=== PATIENT | female | born 1970 | race Two or more races ===

== ENCOUNTER 2017-04-11 18:11 | Inpatient (IN) | payer MEDICARE ==
--- NOTE | ~2017-04-11 | CR72 ---
[facility] A Service of [facility] & [facility] RADIOLOGY TEXT RESULTS PATIENT: RK DONOHUE LOCATION: [address] : [birth year] UNIT #: [id number] AGE: [address]: Mati Bailey MD SEX: F ORDER DR: [id number] [facility] [address] [facility]. [place], [place] [address] [id number] I MR#: [id number] Acc #: [id number] NAME: RK DONOHUE : 1970 SEX: F STUDY DATE/TIME: 04/13/2017 05:20 UNIT: [facility] ROOM: [facility] STUDY DESCRIPTION: CR Chest Single View Portable Attending Physician: Mati Bailey M.D. Ordering Physician: Lashell Stanley M.D. Primary Care Physician: Obi Lawson M.D. MEDICAL IMAGING REPORT This report is preliminary unless electronic signature is present EXAM Portable chest, 04/13 at 05:20 INDICATIONS Respiratory failure, pneumonia. FINDINGS AP portable chest is compared with 04/11/2017. ET tube and right IJ line are in good position. Heart size stable. Infiltrates in the left [id number] lung are worsened and are concerning for pneumonia. Right lung is stable. There are old bilateral rib fractures. No pneumothorax. Dictated by... Raji Harris Jr., M.D. THIS IS AN ELECTRONICALLY VERIFIED REPORT Raji Harris Jr., M.D. at 04/14/2017 5:23 AM EDWARD/hugo TD: 04/13/2017 21:42 JOB #: [id number] MEDICAL IMAGING REPORT Page 1 of 1 COPY
--- NOTE | ~2017-04-11 | CO ---
Unit #: [id number] #: [id number] Patient: RK DONOHUE [id number] [address] [address] [id number] I MR#: [id number] NAME: RK DONOHUE ROOM: [facility] Age: 46 Sex: F Admission Date: 04/12/2017 : 1970 Attending Physician: Lucia Wagner M.D. Primary Care Physician: Obi Lawson M.D. Consultation Date: 04/15/2017 CONSULTATION REPORT REASON FOR CONSULTATION Lumbar compression fractures. CHIEF COMPLAINT Low back pain. HISTORY OF PRESENT ILLNESS Ms. Donohue is a 46-year-old female who is currently in the ICU due to pneumonia and altered mental status. The patient was admitted on 04/12/2017. She is doing better now. She reports low back pain. She had brain surgery back in December and after surgery she was bending over to pick something up and she fell, injuring her low back. This resulted in L1 and L3 compression fractures. It is unclear if this had been diagnosed. On CT of abdomen and pelvis she was noted to have subacute compression fractures involving these levels. The patient reports that pain is worse with motion and better with rest. She does have some difficulty ambulating due to the pain. She has been taking pain medication. No prior problems with the low back. She denies any numbness or tingling in the lower extremities. PAST MEDICAL HISTORY 1. DVT. 2. Seizure. 3. Back pain. 4. History of brain tumor, status post removal. 5. Lupus. 6. Hypertension. 7. Anxiety. PAST SURGICAL HISTORY 1. Left total knee. 2. Bilateral hip replacements. MEDICATIONS As par MAR, they have been reviewed. ALLERGIES Cipro, sulfa, penicillin. SOCIAL HISTORY The patient is from [facility]. She does smoke. No alcohol or drug use. FAMILY HISTORY Noncontributory. Unit #: [id number] #: [id number] Patient: RK DONOHUE REVIEW OF SYSTEMS No other pertinent pauses or negatives noted, other than what was mentioned in the HPI. PHYSICAL EXAMINATION GENERAL: The patient is alert an oriented for examination. No acute distress. VITAL SIGNS: Temperature 98.9 degree Fahrenheit, pulse 65, respiratory rate 20. Oxygen saturation is 97%. Blood pressure 146/86. HEENT: Head is atraumatic and normocephalic. Extraocular movements intact. Mucous membranes moist. Cervical spine midline with no appreciable JVD. Breathing is unlabored. CHEST: Chest rise is symmetric. ABDOMEN: Soft, nontender, nondistended. PULSE: Regular rate and rhythm. No clubbing, cyanosis or edema of the extremities. All extremities are warm and well perfused. Normal motor and sensory examination for all extremities. There is tenderness to palpation along the lumbar spine. No palpable defects. No appreciable skin lesions. DIAGNOSTIC STUDIES IMAGING STUDIES: CT of abdomen and pelvis reviewed with patient. There is subacute L1 and L3 compression fractures noted, approximately 80%. No appreciable cord impingement. LABORATORY STUDIES: White blood cell count 5.3, hemoglobin 9.4, BNP normal. INR 1.1. IMPRESSION 46-year-old female with subacute L1 and S3 compression fractures. PLAN Discuss the findings with the patient and family. I recommend continued conservative treatment. She is okay to be up with physical therapy when cleared medically. Will order a lumbar course at bedside for the patient to try. She will continue pain control. This should continue to heal over the next couple of months. Other options would include kyphoplasty if failure to improve but would not recommend doing this at the current moment. All of the patient's and family's questions were answered today. Dictated by... Ravinder Shaw M.D. BERYL/maria dolores TD: 04/15/2017 12:22 JOB #: [id number] Unit #: [id number] #: [id number] Patient: RK DONOHUE CONSULTATION REPORT Page 1 of 1 X X CONSULTATION REPORT
--- NOTE | ~2017-04-11 | FU ---
[facility] Nutrition Therapy DATE: 04/16/17 Patient: RK DONOHUE Physician: SHANDRA Address: [address] [facility] Room/Bed: [address], Zip: [place] [address] Admit Date: 04/12/17 Date of : [birth year] Height: 5 4 Weight: 132 60.2 NUTRITION MONITORING/FOLLOW-UP: Reason: Nutrition follow up Anthropometrics: Wt 04/16: 60.2 kg Labs: K+ 3.4 Creat 0.3 Alb 3.0 Meds: Coumadin, zofran, solu-medrol, MgS04, KCl, D5% I&O's: 2586/2600, last BM 04/15 Skin: Redness to coccyx Discoloration BLE Scab left heel Edema: none noted Diet: Mechanical soft with ground meats and thin liquids Assessment: Pt remains in ICU, and was extubated yesterday. Diet advanced as noted above per CLIENT SUCCESS SPECIALIST recommendations. Pt was never started on enteral nutrition, NGT was discontinued. RD spoke with the pt at bedside, who reports having a decreased appetite. Pt would not answer all RD's questions, and her provided most of the information. Of note, the pt's first language is Bosnian but she does speak and understand Bermudian. Pt's reports that she has lost weight in an unknown time frame, and that her UBW is 164#. Based on the pt's admission weight, this indicates ~ 26.5# weight loss. Pt's attribtues this to being sick. Pt was eating breakfast at time of RD visit. Pt had consumed ~ 50% of her eggs so far. RD stressed the importance of adequate nutritional intake, and pt is agreeable to Ensure BID. RD will order. Dx: Inadequate protien-energy intake RT clinical condition AEB intubated- RESOLVED 1) Potential for inadequate PO intake RT decreased appetite AEB ~26.5# weight loss reported by the pt's (unknown time frame). Intervention: 1. Diet per CLIENT SUCCESS SPECIALIST 2. Ensure BID Monitoring, Evaluation and Goals: 1. Oral intake; tolerate >50-75% of meals and supplements [facility] Nutrition Therapy DATE: 04/16/17 Patient: RK DONOHUE Physician: SHANDRA Address: [address] Room/Bed: [address], Zip: [place] [address] Admit Date: 04/12/17 Date of : [birth year] Height: 5 4 Weight: 132 60.2 2. Improve labs; K+ 3. Weight; prevent further unintentional weight loss Recommendations: 1. Continue diet per CLIENT SUCCESS SPECIALIST recommendations. No further restrictions recommended at this time. 2. Ensure Enlive (chocolate) BID with meals for supplemental nutrition. Status: Pt is at mild-moderate nutritional risk. RD will continue to follow hospital course. Respectfully, MARTINA PATEL, THALIA, LD [employer] cc: client file
--- NOTE | ~2017-04-11 | CT71 ---
[facility] A Service of [facility] RADIOLOGY TEXT RESULTS PATIENT: RK DONOHUE LOCATION: [facility] CICCU3-23 : [birth year] UNIT #: [id number] AGE: [address]: Mati Bailey MD SEX: F ORDER DR: [id number] [facility] [address] [facility]. [place], [place] [address] [id number] I MR#: [id number] Acc #: [id number] NAME: RK DONOHUE : 1970 SEX: F STUDY DATE/TIME: 04/11/2017 20:33 UNIT: [facility] ROOM: [id number] STUDY DESCRIPTION: CT Head Wo Contrast Attending Physician: Mati Bailey M.D. Ordering Physician: Bertha Jones M.D. Primary Care Physician: Obi Lawson M.D. MEDICAL IMAGING REPORT This report is preliminary unless electronic signature is present EXAM CT brain without contrast HISTORY Cardiopulmonary arrest today. Unresponsive. TECHNIQUE This CT exam was performed with one or more of the following radiation dose reduction techniques: automatic control, adjustment of mA and/or kV according to patient size, and iterative reconstruction. FINDINGS CT brain without contrast demonstrates a moderate sized area of chronic encephalomalacia in the anterior, superior left frontal lobe with overlying anterior frontal craniotomy. No intracranial hemorrhage, or midline shift. Mild compensatory dilatation of the anterior left lateral ventricle. No extraaxial fluid collection. Mucosal thickening in ethmoid air cells bilaterally and in the frontal sinuses. IMPRESSION 1. No acute intracranial findings. 2. Moderate sized focal area of encephalomalacia in the anterosuperior left frontal lobe deep to chronic frontal craniotomy. Dictated by... Gilles Forbes M.D. THIS IS AN ELECTRONICALLY VERIFIED REPORT Gilles Forbes M.D. at 04/12/2017 2:59 PM DFL/rnr TD: 04/12/2017 01:29 [facility] A Service of [facility] RADIOLOGY TEXT RESULTS PATIENT: RK DONOHUE LOCATION: [address] : [birth year] UNIT #: [id number] AGE: [address]: Mati Bailey MD SEX: F ORDER DR: JOB #: [id number] MEDICAL IMAGING REPORT Page 1 of 1 COPY
--- NOTE | ~2017-04-11 | CT2 ---
[facility] A Service of [facility] & [facility] RADIOLOGY TEXT RESULTS PATIENT: RK DONOHUE [facility] [birth year] UNIT #: [id number] AGE: [address]: Mati Bailey MD SEX: F ORDER DR: [id number] [facility] [address] [place], [place] [address] [id number] I MR#: [id number] Acc #: [id number] NAME: RK DONOHUE : 1970 SEX: F STUDY DATE/TIME: 04/11/2017 20:45 UNIT: [facility] ROOM: [id number] STUDY DESCRIPTION: CT Abd and Pelv W Cont Attending Physician: Mati Bailey M.D. Ordering Physician: Bertha Jones M.D. Primary Care Physician: Obi Lawson M.D. MEDICAL IMAGING REPORT This report is preliminary unless electronic signature is present EXAM CT abdomen pelvis with IV contrast HISTORY Shortness of air today. Cardiopulmonary arrest. Fever and lethargy today. TECHNIQUE This CT exam was performed with one or more of the following radiation dose reduction techniques: automatic control, adjustment of mA and/or kV according to patient size, and iterative reconstruction. FINDINGS CT abdomen and pelvis was performed with IV contrast. CT ABDOMEN: 1 cm cyst in the lateral segment left hepatic lobe. The remainder of the liver is unremarkable. Gallbladder is contracted. The spleen, pancreas, right kidney, and adrenal glands are normal. Subcentimeter cyst in the lower pole of the left kidney. Moderate amount of stool throughout the colon. No bowel dilatation. No ascites. IVC filter below the level of the renal veins. CT PELVIS: Moderate amount of stool in the sigmoid colon. Normal appendix. No pelvic mass or fluid collection is identified. Campuzano catheter in the bladder. The uterus is partly visualized and streak artifact from bilateral hip prostheses limits evaluation of the pelvis. Severe compression fractures of L1 and L3 vertebral bodies with close to 80% maximal loss of mid vertebral body height. These are new compared to CT 12/16/2016 and are probably subacute to chronic. IMPRESSION 1. No acute findings in the abdomen or pelvis. No abscess or free fluid or inflammatory stranding. 2. Severe compression fractures of the L1 and L3 vertebral bodies with STS. [facility] A Service of [facility] & [facility] RADIOLOGY TEXT RESULTS PATIENT: RK DONOHUE LOCATION: [facility]3-[facility] : [birth year] UNIT #: [id number] AGE: [address]: Mati Bailey MD SEX: F ORDER DR: close to 80% maximal loss of the mid vertebral body height. These are probably subacute to chronic and are new compared to CT 12/16/2016. 3. Normal appendix. 4. IVC filter in satisfactory position. 5. Moderate amount of stool throughout the colon. Dictated by... Gilles Forbes M.D. THIS IS AN ELECTRONICALLY VERIFIED REPORT Gilles Forbes M.D. at 04/12/2017 2:59 PM DFL/conrad TD: 04/12/2017 02:18 JOB #: [id number] MEDICAL IMAGING REPORT Page 1 of 1 COPY
--- NOTE | ~2017-04-11 | CR72 ---
[facility] A Service of [facility] & [facility] RADIOLOGY TEXT RESULTS PATIENT: RK DONOHUE LOCATION: [address] : [birth year] UNIT #: [id number] AGE: [address]: Mati Bailey MD SEX: F ORDER DR: [id number] [facility] [address] [place], [place] [address] [id number] I MR#: [id number] Acc #: [id number] NAME: RK DONOHUE : 1970 SEX: F STUDY DATE/TIME: 04/14/2017 0345 UNIT: [facility] ROOM: [facility] STUDY DESCRIPTION: CR Chest Single View Portable Attending Physician: Mati Bailey M.D. Ordering Physician: Lashell Stanley M.D. Primary Care Physician: Obi Lawson M.D. MEDICAL IMAGING REPORT This report is preliminary unless electronic signature is present EXAM Portable chest, 04/14 at 0345 hours. INDICATION Respiratory failure, pneumonia. Fever. FINDINGS AP portable chest compared with 04/13/2017. ET tube and right IJ line are in good position. Heart size stable. Patchy bilateral infiltrates are again seen. These are stable on the left and minimally worse at the right base. There are bilateral old rib fractures. No pneumothorax. Dictated by... Raji Harris Jr., M.D. THIS IS AN ELECTRONICALLY VERIFIED REPORT Raji Harris Jr., M.D. at 04/14/2017 5:19 PM EDWARD/fuad TD: 04/14/2017 10:53 JOB #: [id number] MEDICAL IMAGING REPORT Page 1 of 1 COPY
--- NOTE | ~2017-04-11 | CR72 ---
[facility] A Service of [facility] & [facility] RADIOLOGY TEXT RESULTS PATIENT: RK DONOHUE LOCATION: [facility] C[facility]3 : [birth year] UNIT #: [id number] AGE: [address]: Mati Bailey MD SEX: F ORDER DR: [id number] [facility] [address] [place], [place] [address] [id number] E MR#: [id number] Acc #: [id number] NAME: RK DONOHUE : 1970 SEX: F STUDY DATE/TIME: 04/11/2017 17:57 UNIT: [facility] ROOM: STUDY DESCRIPTION: CR Chest Single View Portable Attending Physician: Toney Ponce M.D. Ordering Physician: Bertha Jones M.D. Primary Care Physician: Obi Lawson M.D. MEDICAL IMAGING REPORT This report is preliminary unless electronic signature is present EXAM Portable chest x-ray. DATE OF EXAM 04/11/2017 HISTORY Status post intubation. REPORT AP radiograph of the chest is presented. COMPARISON Most recent study for comparison 12/16/2016. FINDINGS Endotracheal tube terminates in mid-thoracic trachea, approximately 3.2 cm above vanesa. Enteric tube extends below diaphragm and off field of radiograph. Mild cardiac enlargement stable. Tortuous thoracic aorta stable. Bilateral healed rib fractures. No acute-appearing bony abnormality. The lungs are moderately well inflated. Mildly prominent central peribronchial markings slightly more pronounced than on the prior study. This could be a reflection of mild interstitial edema superimposed on chronic bronchitis changes or component of acute on chronic bronchitis. Reactive airway disease could be considered. Correlation with clinical presentation and exam. No dense airspace disease, pleural effusion or pneumothorax and no suspicious nodule. Dictated by... Leobardo Baez M.D. [facility] A Service of [facility] & [facility] RADIOLOGY TEXT RESULTS PATIENT: RK DONOHUE LOCATION: [facility] CICCU3 : [birth year] UNIT #: [id number] AGE: [address]: Mati Bailey MD SEX: F ORDER DR: THIS IS AN ELECTRONICALLY VERIFIED REPORT Leobardo Baez M.D. at 04/14/2017 8:19 PM Johnathon TD: 04/11/2017 23:42 JOB #: [id number] MEDICAL IMAGING REPORT Page 1 of 1 COPY
--- NOTE | ~2017-04-11 | HP ---
Unit #: [id number] #: [id number] Patient: RK DONOHUE [id number] [address] [address] [id number] I MR#: [id number] NAME: RK DONOHUE ROOM: [facility] Age: 46 Sex: F Admission Date: 04/12/2017 : 1970 Attending Physician: Lucia Wagner M.D. Primary Care Physician: Obi Lawson M.D. HISTORY AND PHYSICAL HISTORY OF PRESENT ILLNESS Ms. Donohue is a 46-year-old female, an immigrant from [facility], who was admitted on April 12 secondary to acute respiratory failure requiring intubation along with the pneumonia. Apparently patient was not put on my list therefore I have not seen the patient till today when she appeared on my list. It looks like she came in with the hypoxemic respiratory failure requiring intubation. She was intubated, was followed throughout the admission in ICU by intensive care service. She was treated with the antibiotics, mechanical ventilation and bronchodilators and steroids. She was successfully extubated. She is one with the history of DVT status post IVC filter, history of seizure disorder, chronic back pain, history of brain tumor status post removal, history of lupus, hypertension, anxiety, depression and chronic pain, taken care of by primary care physician Dr. Lawson. Currently she complains of having trouble sleeping, otherwise she denies any chest pain, headache, dizziness, fever, chills, nausea, vomiting, diarrhea or abdominal pain. REVIEW OF SYSTEMS A 12-point review of systems on this patient is basically negative except as above. PAST MEDICAL HISTORY Past medical history is significant for: 1. History of DVT. 2. Chronic pain. 3. Seizures. 4. Brain tumor, status post removal. 5. Lupus. 6. Hypertension. 7. Anxiety and depression. PAST SURGICAL HISTORY Past surgical history is significant for: 1. Left total knee. 2. Bilateral hip replacement. CURRENT MEDICATIONS Current medications on this patient include Xanax, Megace, Keppra, Coumadin, Ultram, methadone, Neurontin, amitriptyline, morphine, Zofran, Solu-Medrol, Combivent inhalers, Tylenol p.r.n., mag sulfate per replacement protocol, KCl per replacement protocol, Maxipime IV. Unit #: [id number] #: [id number] Patient: RK DONOHUE ALLERGIES Sulfa, penicillin and Cipro. SOCIAL HISTORY She is an active smoker, no alcohol or illicit drug use. FAMILY HISTORY Unremarkable. PHYSICAL EXAMINATION GENERAL: Patient is a 46-year-old ill-appearing female not in acute distress. VITAL SIGNS: BP 158/82. Heart rate 67. Respirations 20. Temperature 99.5. HEENT: Head is atraumatic. Pupils equal, round and reactive to light and accommodation. Extraocular muscles intact. Oropharynx clear. NECK: Neck is supple. No mass. No JVD. No bruits. CHEST: Diminished bilaterally. CARDIOVASCULAR EXAM: S1, S2. No murmurs. ABDOMEN: Soft, nontender, nondistended. EXTREMITIES: Lower extremities without any cyanosis, clubbing or edema. NEUROLOGIC: Patient without any focal deficits. DIAGNOSTIC STUDIES LABORATORY: Chemistry unremarkable with albumin of 3.0. Coagulation panel: PT and INR 11.4 and 1.1. On admission set of cardiac enzymes was negative. Today's hematology is significant for hemoglobin and hematocrit 9.4 and 28.6. ASSESSMENT AND PLAN 1. Acute hypoxemic respiratory failure. 2. Pneumonia. 3. History of seizure disorder. 4. History of deep venous thrombosis, on anticoagulation, status post inferior vena cava filter. 5. Compression lumbar spine fractures with the chronic low back pain, status post evaluation per Orthopedic Surgery: Will ask Spinal Surgery for eval. 6. History of depression and anxiety: Will get Psychiatry onboard. 7. History of chronic pain: Continue current management. Watch for oversedation. 8. Anemia of chronic disease: Monitor hemoglobin and hematocrit. 9. Continue current GI and DVT prophylaxis. Dictated by Andrey Marcos/federico TD: 04/15/2017 20:14 JOB #: [id number] Unit #: [id number] #: [id number] Patient: RK DONOHUE HISTORY AND PHYSICAL Page 1 of 1 X Justino Pelletier MD HISTORY AND PHYSICAL
--- NOTE | ~2017-04-11 | OR ---
Unit #: [id number] #: [id number] Patient: RK DONOHUE [id number] [address] [address] [id number] I MR#: [id number] NAME: RK DONOHUE ROOM: [facility] Date of Procedure: 04/13/2017 Admission Date: 04/12/2017 Surgeon: Lashell Stanley M.D. : 1970 Attending Physician: Mati Bailey M.D. Primary Care Physician: Obi Lawson M.D. PROCEDURE OPERATIVE NOTE PROCEDURE PERFORMED Diagnostic bronchoscopy. INDICATION Pneumonia. PREPROCEDURE DIAGNOSIS Pneumonia. POSTPROCEDURE DIAGNOSIS Pneumonia. DETAILS OF PROCEDURE After taking consent from the patient's family and explaining the risks and benefits, patient was placed in proper position. A bronchoscope was introduced through the endotracheal tube which was sitting well above the vanesa. We examined the right upper, right middle, and right lower lobe, left upper lobe, lingula, and left lower lobe. No endobronchial lesion was found. There were thick, mucoid secretions in both lungs which were therapeutically suctioned. Then, we did a bronchoalveolar lavage in the right lower lobe and right middle lobe area with 100 mL of saline in and 30 mL back. Patient tolerated the procedure very well. No complications happened. Dictated by... Andrey Howard TD: 04/13/2017 17:41 JOB #: [id number] PROCEDURE OPERATIVE NOTE Page 1 of 1 X Lashell Stanley MD X PROCEDURE OPERATIVE NOTE
--- NOTE | ~2017-04-11 | CO ---
Unit #: [id number] #: [id number] Patient: RK DONOHUE [id number] [facility] [address] [place], [place] [address] [id number] I MR#: [id number] NAME: RK DONOHUE ROOM: 330 Age: 46 Sex: F Admission Date: 04/12/2017 : 1970 Attending Physician: Lucia Wagner M.D. Primary Care Physician: Obi Lawson M.D. Consultation Date: 04/17/2017 CONSULTATION REPORT REASON FOR CONSULTATION Followup. DISCUSSION Ms. Donohue is a 46-year-old Bosnian female seen in room 330, bed 1, on 04/17/17 at [facility]. Patient was recently transferred from CCU. Patient's was at the bedside. Patient dressed casually in hospital attire, sitting comfortably in chair, made good eye contact, able to answer questions more spontaneously, coherent, cooperative. Patient reported medication is helping her. Denied any suicidal or homicidal ideation. Reported decrease in anxiety and depression. Denied any psychotic symptoms or any suicidal or homicidal ideation. Patient's vital signs - 97.6; 94; 18; 140/93; oxygen saturation 97%. REVIEW OF SYSTEMS Complete review of systems unremarkable. MENTAL STATUS EXAMINATION Vital signs - Please see above. General appearance - Patient dressed casually in hospital attire. Attention span, concentration - Fair. Speech - Regular rate, coherent. Oriented to time, place and person. Mood and affect - Sad, dysphoric, flat but able to smile. Thought process - Coherent. Thought content - Patient denied any thoughts of harming self or others or any psychotic symptoms. Recent and remote memory - Fair. Language - Intact. Fund of knowledge - Fair. Insight and judgment - Fair to slightly impaired. DIAGNOSIS PSYCHIATRIC - Major depressive disorder, recurrent, moderate, F33.2; anxiety disorder, NOS, F40.01. ASSESSMENT AND PLAN 1. Supportive psychotherapy and psychoeducation provided to the patient. 2. Educated about benefits and side effects of medication and course and prognosis of illness. 3. Advised to continue with current medications. If needed, consider further adjustment of medications. Please feel free to call with any questions, telephone number . Unit #: [id number] #: [id number] Patient: RK DONOHUE Dictated by... Andrey Deleon/belkis TD: 04/18/2017 07:45 JOB #: [id number] CONSULTATION REPORT Page 1 of 1 X Rony Lai MD X CONSULTATION REPORT
--- NOTE | ~2017-04-11 | CR6 ---
[facility] A Service of [facility] & [facility] RADIOLOGY TEXT RESULTS PATIENT: RK DONOHUE LOCATION: CICCU3 CICCU3-23 : [birth year] UNIT #: [id number] AGE: [address]: Mati Bailey MD SEX: F ORDER DR: [id number] [facility] [address] [place], [place] [address] [id number] E MR#: [id number] Acc #: [id number] NAME: RK DONOHUE : 1970 SEX: F STUDY DATE/TIME: 04/11/2017 19:02 UNIT: FELIZ ROOM: STUDY DESCRIPTION: CR Abdomen Portable Sng View Attending Physician: Toney Ponce M.D. Ordering Physician: Bertha Jones M.D. Primary Care Physician: Obi Lawson M.D. MEDICAL IMAGING REPORT This report is preliminary unless electronic signature is present EXAM Supine radiograph of the abdomen HISTORY Central line and mass abdomen on left side. FINDINGS AP radiograph of the abdomen is presented. Right hemiabdomen not included on field of view and cannot be assessed. Airspace disease left lung base with small left pleural effusion. Please see prior chest radiograph for full evaluation of the lungs. Enteric tube terminates near the junction of proximal middle thirds of stomach. There is an inferior vena caval filter in place centered at the L2 - L3 level. The visualized bowel gas pattern is within normal limits with moderate stool burden in colon. There appears to be a Campuzano catheter in place. Prior right hip arthroplasty. Visualized orthopedic hardware intact. Moderate levoscoliosis lumbar spine centered at L3 level. Associated degenerative changes. No acute-appearing bony abnormality. Where visible the solid organ contours are unremarkable. No indication of free air. Dictated by... Leobardo Baez M.D. THIS IS AN ELECTRONICALLY VERIFIED REPORT Leobardo Baez M.D. at 04/14/2017 8:14 PM ALEX/conrad TD: 04/12/2017 00:11 JOB #: [id number] [facility] A Service of [facility] & [facility] RADIOLOGY TEXT RESULTS PATIENT: RK DONOHUE [facility] [birth year] UNIT #: [id number] AGE: [address]: Mati Bailey MD SEX: F ORDER DR: MEDICAL IMAGING REPORT Page 1 of 1 COPY
--- NOTE | ~2017-04-11 | CT16 ---
[facility] A Service of [facility] & [facility] RADIOLOGY TEXT RESULTS PATIENT: RK DONOHUE LOCATION: CEDOF [address]1046-93 : [birth year] UNIT #: [id number] AGE: [address]: Mati Bailey MD SEX: F ORDER DR: [id number] [facility] [address] [place], [place] [address] [id number] I MR#: [id number] Acc #: [id number] NAME: RK DONOHUE : 1970 SEX: F STUDY DATE/TIME: 04/11/2017 20:45 UNIT: CED ROOM: 85978 STUDY DESCRIPTION: CT Angio Chest for PE Attending Physician: Mati Bailey M.D. Ordering Physician: Bertha Jones M.D. Primary Care Physician: Obi Lawson M.D. MEDICAL IMAGING REPORT This report is preliminary unless electronic signature is present EXAM Chest CTA 04/11/2045 INDICATIONS Shortness of air status post full arrest today. Fever and lethargy. Patient currently unresponsive and intubated. TECHNIQUE Axial images were obtained through the chest following IV contrast administration. Study was repeated secondary to poor bolus timing. 3-D reformats were obtained. Comparison is made with 12/16/2016. This CT exam was performed with one or more of the following radiation dose reduction techniques: automatic control, adjustment of mA and/or kV according to patient size, and iterative reconstruction. FINDINGS Endotracheal tube is in good position. Right IJ central venous catheter tip is in the SVC. NG tube tip is in the stomach. There is no pulmonary embolism or aortic dissection. No pleural or pericardial effusion. There is no adenopathy. Lung windows demonstrate scattered areas of alveolar infiltrate in both lungs with a diffuse tree-in-bud infiltrate bilaterally. Findings are in keeping with diffuse pneumonia. Secretions are noted in both mainstem bronchi. Aspiration is not excluded. There is no pneumothorax. The upper abdomen shows an IVC filter. Bone windows demonstrate multiple old bilateral rib fractures. Additionally, since the prior chest CT, there has been interval development of multiple jfu-ep-wzrna thoracic compression fractures. Fractures are now evident at L2, L1, T12, T11, probably at T10. Compression fracture at T9 has worsened since the prior CT. The fracture at L1 is most severe and there are approximately 8 mm of retropulsion into the spinal canal causing spinal stenosis. Followup with thoracic spine MRI with and without contrast is recommended when clinically feasible. [facility]. [facility] A Service of [facility] & [facility] RADIOLOGY TEXT RESULTS PATIENT: RK DONOHUE LOCATION: [facility] [address]-37 : [birth year] UNIT #: [id number] AGE: [address]: Mati Bailey MD SEX: F ORDER DR: IMPRESSION 1. No pulmonary embolism or aortic dissection. 2. Diffuse tree-in-bud infiltrates throughout both lungs compatible with diffuse bilateral pneumonia. More confluent areas of alveolar consolidation are noted as well bilaterally in a patchy distribution. There are some secretions in both mainstem bronchi and I cannot exclude the possibility of aspiration. 3. Well-positioned tubes and lines. 4. Multiple new thoracic and upper lumbar compression fractures since the chest CT of 12/16/2016. Followup with thoracic spine MRI with and without contrast when clinically feasible is recommended. The most severe fracture appears to be at L1 where there is about 8 mm of retropulsion into the spinal canal. Dictated by... Raji Harris Jr., M.D. THIS IS AN ELECTRONICALLY VERIFIED REPORT Raji Harris Jr., M.D. at 04/12/2017 5:47 AM EDWARD/conrad TD: 04/12/2017 05:35 JOB #: [id number] MEDICAL IMAGING REPORT Page 1 of 1 COPY
--- NOTE | ~2017-04-11 | CO ---
Unit #: [id number] #: [id number] Patient: RK DONOHUE [id number] [facility]. [place], [place] [address] [id number] I MR#: [id number] NAME: RK DONOHUE ROOM: [facility] Age: 46 Sex: F Admission Date: 04/12/2017 : 1970 Attending Physician: Lucia Wagner M.D. Primary Care Physician: Obi Lawson M.D. Consultation Date: 04/16/2017 CONSULTATION REPORT REASON FOR CONSULTATION Depression/anxiety. HISTORY OF PRESENT ILLNESS Ms. Donohue is a 46-year-old, Czech female seen on bed 23, CCU3 at [facility] on 04/16/17. Patient was sitting in a propped up position. Patient's was helping in feeding her. Patient was able to answer questions appropriately and answered questions slowly. Reported feeling sad and depressed along with anger, (1) aggression. Patient's also reported there is change in her behavior after recent brain surgery when the tumor was removed. Patient was admitted due to acute respiratory failure requiring intubation and diagnosed with pneumonia. Patient is having periods of agitation. Patient's reported that she has a history of severe chronic back pain; history of brain tumor, status post removal; and history of depression/anxiety currently on no medication, except for Xanax. Patient denied any thoughts of harming self or others or any psychotic symptoms, but somewhat guarded. Patient's vital signs: 98.5, 86, 20, 132/72, and oxygen saturation 95%. PAST PSYCHIATRIC HISTORY Remarkable for history of depression/anxiety. MEDICAL HISTORY History of DVT; chronic pain; seizure disorder; brain tumor, status post removal; lupus; hypertension. MEDICATION ALLERGIES To sulfa, penicillin, and Cipro. MEDICATIONS Patient is on: 1. Xanax. 2. Keppra. 3. Coumadin. 4. Ultram. 5. Methadone. 6. Neurontin. 7. Amitriptyline. 8. Morphine. 9. Zofran. 10. Solu-Medrol. 11. Combivent. FAMILY HISTORY AND SOCIAL HISTORY Unit #: [id number] #: [id number] Patient: RK DONOHUE Patient has a good support system. No history of abuse. No history of any substance abuse. REVIEW OF SYSTEMS Completely review of systems is unremarkable, except as mentioned above, anxiety, and agitation. MENTAL STATUS EXAMINATION VITAL SIGNS: Please see above. GENERAL APPEARANCE: Patient dressed casually in hospital attire. ATTENTION SPAN AND CONCENTRATION: Fair to poor. SPEECH: Slow. Long pauses. ORIENTATION: Oriented in self and place. MOOD AND AFFECT: Labile, flat. THOUGHT PROCESS: Circumstantial. THOUGHT CONTENT: Guarded, but denied any thoughts of harming self or others. Somewhat guarded and paranoid. RECENT AND REMOTE MEMORY: Fair to slightly impaired. LANGUAGE: Fair. FUND OF KNOWLEDGE: Fair to slightly impaired. INSIGHT AND JUDGEMENT: Fair to slightly impaired. DIAGNOSES PSYCHIATRIC 1. Major depressive disorder, recurrent, severe, F33.2. 2. Anxiety disorder, NOS, F40.01. SECONDARY DIAGNOSIS: Deferred. MEDICAL DIAGNOSIS: Please refer to H and P. STRESSORS: Psychosocial stressors. ASSESSMENT/PLAN 1. Supportive psychotherapy and psychoeducation provided to patient. 2. Educated about benefits and side effects of medication and course and prognosis of illness. 3. Advised to continue with the current medication Xanax, but changing the dosage to 0.5 mg 3 times a day and recommending to add Zoloft for mood symptoms 25 mg at bedtime. If needed, consider medication such as Zyprexa for mood stabilization. 4. We will continue to follow. Please feel free to call if any questions. Telephone number . Dictated by... Andrey Deleon/oli TD: 04/17/2017 06:31 JOB #: [id number] Unit #: [id number] #: [id number] Patient: RK DONOHUE CONSULTATION REPORT Page 1 of 1 X Rony Lai MD CONSULTATION REPORT
--- NOTE | ~2017-04-11 | EKG ---
PATIENT: RK DONOHUE UNIT #: [id number] Ventricular Rate: 141 BPM Atrial Rate: 141 BPM P-R Interval: 154 ms QRS Duration: 80 ms Q-T Interval: 252 ms QTC Calculation(Bezet): 385 ms P [place]: 65 degrees Calculated R [place]: -3 degrees Calculated T [place]: 63 degrees Diagnosis Line: Sinus tachycardia Diagnosis Line: Nonspecific ST and T wave abnormality Diagnosis Line: Otherwise normal ECG Diagnosis Line: When compared with ECG of 16-DEC-2016 06:38, Diagnosis Line: Vent. rate has increased BY 66 BPM Diagnosis Line: ST now depressed in Anterior leads Diagnosis Line: Confirmed by HILARY PALACIOS MD ([id number]) on 04/11/2017 Diagnosis Line: 8:12:45 PM INTERPRETING MD: PHILIP BAUTISTA
--- NOTE | ~2017-04-11 | CR72 ---
[facility] A Service of [facility] RADIOLOGY TEXT RESULTS PATIENT: RK DONOHUE LOCATION: CICCU3 CICCU3-23 : [birth year] UNIT #: [id number] AGE: [address]: Mati Bailey MD SEX: F ORDER DR: [id number] [facility] [address] [facility] [place], [place] [address] [id number] E MR#: [id number] Acc #: [id number] NAME: RK DONOHUE : 1970 SEX: F STUDY DATE/TIME: 04/11/2017 18:59 UNIT: FELIZ ROOM: STUDY DESCRIPTION: CR Chest Single View Portable Attending Physician: Toney Ponce M.D. Ordering Physician: Bertha Jones M.D. Primary Care Physician: Obi aLwson M.D. MEDICAL IMAGING REPORT This report is preliminary unless electronic signature is present EXAM Portable chest x-ray HISTORY Status post TLC placement. FINDINGS AP radiograph of the chest is presented. Comparison 04/11/2017 17:57 hours. Right internal jugular central venous catheter terminates in superior vena cava. Endotracheal tube unchanged. Enteric tube extends below diaphragm at least to mid gastric level. The side-port is seen at junction of proximal and middle thirds of stomach. The cardiomediastinal contours are unchanged. Lung volumes moderate. Interstitial prominence in the bilateral lungs has increased in the interval from the prior study concerning for increased interstitial edema. New patchy air space disease at the left lung base could be in part atelectatic in nature or in part air space edema. New small left pleural effusion. No pneumothorax. No acute bony abnormality. Bilateral healed rib fractures. Dictated by... Leobardo Baez M.D. THIS IS AN ELECTRONICALLY VERIFIED REPORT Leobardo Baez M.D. at 04/14/2017 8:19 PM ALEX/ayanr TD: 04/12/2017 00:08 JOB #: [id number] [facility] A Service of [facility] RADIOLOGY TEXT RESULTS PATIENT: RK DONOHUE [address] [birth year] UNIT #: [id number] AGE: [address]: Mati Bailey MD SEX: F ORDER DR: MEDICAL IMAGING REPORT Page 1 of 1 COPY
--- NOTE | ~2017-04-11 | CO ---
Unit #: [id number] #: [id number] Patient: RK DONOHUE [id number] [address] [address] [id number] I MR#: [id number] NAME: RK DONOHUE ROOM: [facility] Age: 46 Sex: F Admission Date: 04/12/2017 : 1970 Attending Physician: Mati Bailey M.D. Primary Care Physician: Obi Lawson M.D. CONSULTATION REPORT REASON FOR CONSULTATION Critical care management and respiratory failure, pneumonia. CHIEF COMPLAINT/HISTORY OF PRESENT ILLNESS This patient basically presented, brought in by the family, with a fever and altered mental status one day ago. Temperature was 103 with cough and difficulty breathing. The patient was intubated in the emergency room. PAST MEDICAL HISTORY 1. DVT. 2. Seizure. 3. Chronic back pain. 4. Benign brain tumor, recently (1) surgery. I am seeing the patient at bedside. Currently intubated, sedated. REVIEW OF SYSTEMS Unobtainable. PHYSICAL EXAMINATION VITAL SIGNS: Her temperature is 101, pulse is 111, respirations 22, blood pressure is 135/78. NEUROLOGICAL: She is sedated, intubated. PAST MEDICAL HISTORY As described above. SOCIAL HISTORY Positive for smoking. No alcohol, no drug abuse. FAMILY HISTORY None as per record. MEDICATIONS As per MAR, has been reviewed. ALLERGIES Has been reviewed. DIAGNOSTIC STUDIES LABORATORY: pH of 7.36, pCO2 46, pO2 is 121. INR 5.5, white count 9, hemoglobin 13, hematocrit 43, platelet count is 195. Unit #: [id number] #: [id number] Patient: RK DONOHUE Drug screen positive for methadone and benzodiazepine and TCA. IMAGING: Chest x-ray has been reviewed. ASSESSMENT AND PLAN 1. Acute respiratory failure. 2. Altered mental status. 3. Chronic obstructive pulmonary disease exacerbation. 4. Pneumonia. Plan is to continue ventilator support, continue broad spectrum IV antibiotic, GI and DVT prophylaxis and FFP. Repeat patient's INR. Consult spine surgery likely for spine fracture. She will need anticoagulation once INR corrected. We will review the records from the outside facility. Please see orders for detailed plan. Total critical care time - 75 minutes in direct critical care of this patient. Thank you very much for this consultation. Dictated by... Andrey Howard TD: 04/12/2017 10:29 JOB #: [id number] CONSULTATION REPORT Page 1 of 1 X Lashell Stanley MD CONSULTATION REPORT
--- NOTE | ~2017-04-11 | A ---
[facility] Nutrition Therapy DATE: 04/12/17 Patient: RK DONOHUE Physician: JOHN Address: [address] [facility] Room/Bed: [address], Zip: [place] [address] Admit Date: 04/12/17 Date of : [birth year] Height: 5 4 Weight: 137 62.5 NUTRITIONAL ASSESSMENT: REASON: NPO STATUS IN ICU, CONSULT RE: 20# WEIGHT LOSS AND POOR INTAKE AT HOME 46 yo female admitted for PNA PMH: Venous ulcer, total knee replacement, GERD, small esophagus, ? dysphagia, chronic constipation Anthropometrics: Ht: 64" wt: 62.5 kg BMI: 23.7 Labs: Alk phos 123 Meds: Propofol @ 19.4 mL/hr, fentanyl, protonix, solu-medrol, D5%, NaCl I/O & Bowel function: none available, last BM unknown Skin Integrity & edema: information not available Estimated Nutrition Needs: 5699-6355 kcals (25-30 kcals/kg) 75-94 grams protein (1.2-1.5 grams/kg) Assessment: Chart reviewed, events noted. Pt is intubated and sedated in the ICU, admitted for PNA. Propofol is providing an additional 512 kcals from lipids at this time. No plans for nutrition support at this timewith NG to suction. Per family in room, the pt has lost ~20# and had poor intake prior to admission. Family denies that the pt has any renal or DM history. Please see recommendations below. Dx: Inadequate protein-energy intake RT clinical condition AEB NPO status, intubated. Intervention: 1. NPO 2. Enteral nutrition Monitoring, Evaluation and Goals: 1. Enteral nutrition; initiate, then provide >80% goal volume x 24 hrs 2. Weight; prevent further weight loss Recommendations: 1. Once medically feasible, initiate enteral nutrition with Jevity 1.5 @ 15 mL/hr. Increase by 10 mL q 8 hrs as tolerated to indicated goal below: [facility] Nutrition Therapy DATE: 04/12/17 Patient: RK DONOHUE Physician: JOHN Address: [address] [facility] Room/Bed: [address], Zip: [place] [address] Admit Date: 04/12/17 Date of : [birth year] Height: 5 4 Weight: 137 62.5 WHILE THE PT IS RECEIVING PROPOFOL: -Increase Jevity 1.5 to 30 mL/hr + 30 mL Prostat BID to provide: 1792 kcals/ 76 grams protein/ 547 WHEN PROPOFOL IS DISCONTINUED: -Discontinue Prostat -Increase Jevity 1.5 to 50 mL/hr to provide: 1800 kcals/ 77 grams protein/ 912 mL free H20 2. If the pt is extubated, recommend diet advancement per CHEF'S ASSISTANT recommendations. Pt is at moderate-severe nutritional risk. RD will follow hospital course per protocol. Respectfully, MARTINA PATEL RD, LD [facility] cc: client file
--- NOTE | ~2017-04-11 | CO ---
Unit #: [id number] #: [id number] Patient: RK DONOHUE [id number] [facility] [address] [facility] [place], [place] [address] [id number] I MR#: [id number] NAME: RK DONOHUE ROOM: 330 Age: 46 Sex: F Admission Date: 04/12/2017 : 1970 Attending Physician: Lucia Wagner M.D. Primary Care Physician: Obi Lawson M.D. Consultation Date: 04/18/2017 CONSULTATION REPORT REASON FOR CONSULTATION Followup. DISCUSSION Ms. Donohue is a 46-year-old female, seen in room 330, bed 1 on 04/18/2017 at [facility]. The patient made good eye contact, dressed casually in hospital attire. Able to answer question more spontaneously. The patient seemed brighter. Reports decrease in anxiety, sleeping good, decrease in agitation. Medication is helping her. The patient's was at the bedside, who also gave information. The patient's vital signs; temperature 97.3, pulse 101, respirations 16, blood pressure 120/73, oxygen saturation 98%. The patient denied any thoughts of harming self or others, or any agitation. REVIEW OF SYSTEMS A complete review of systems is unremarkable. MENTAL STATUS EXAMINATION Vital signs; please see above. General appearance; the patient dressed casually in hospital attire, lying comfortably in bed. Attention span and concentration, fair. Speech; regular rate and coherent. Oriented in time, place, and person. Mood and affect, labile. Thought process, coherent. Thought content; the patient denied any thoughts of harming self or others. Denied any hallucination. Recent and remote memory, fair. Language, intact. Fund of knowledge, fair. Insight and judgment, fair to slightly impaired. DIAGNOSES Psychiatric: Major depressive disorder, recurrent, moderate, F33.2. Secondary diagnosis: Deferred. ASSESSMENT AND PLAN 1. Supportive psychotherapy and psychoeducation provided to the patient. 2. Educated about benefits and side effects of medication and course and prognosis of illness. 3. Advised to continue with current medication. If needed, consider further adjustment of medication. Please feel free to call if any questions, telephone #[phone]. Dictated by... Rony Lai M.D. Unit #: [id number] #: [id number] Patient: RK DONOHUE ADOLPH/marcus TD: 04/19/2017 14:19 JOB #: [id number] CONSULTATION REPORT Page 1 of 1 X Rony Lai MD CONSULTATION REPORT
--- NOTE | ~2017-04-11 | DS ---
Unit #: [id number] #: [id number] Patient: RK DONOHUE [id number] [address] [address] [id number] MR#: [id number] NAME: RK DONOHUE ROOM: 330 Age: 46 Sex: F Admission Date: 04/12/2017 : 1970 Discharge Date: 04/19/2017 Attending Physician: Lucia Wagner M.D. Primary Care Physician: Obi Lawson M.D. DISCHARGE SUMMARY DISCHARGE DIAGNOSES 1. Status post acute hypoxemic respiratory failure. 2. Pneumonia status post completion antibiotics. 3. Toxic metabolic encephalopathy, resolved. 4. Acute exacerbation of chronic obstructive pulmonary disease, resolving. 5. Lumbar spine compression fracture status post evaluation per Orthopaedic Surgery. 6. Deep venous thrombosis on anticoagulation. 7. Anemia of chronic disease, stable. Hemoglobin and hematocrit 10.9 and 32.9 from April 18. CONSULTS ON THIS HOSPITAL STAY 1. Dr. Stanley, Intensive Care. 2. Dr. Lai, Psychiatry. 3. Dr. Shaw, Orthopaedic Surgery. LABS AND DIAGNOSTIC PROCEDURES ON THIS HOSPITAL STAY 1. Bronchoscopy per Dr. Stanley. 2. Chest x-ray: Signs of peribronchial marking, chronic bronchitis. No dense airspace disease. 3. CT head without contrast: No acute intracranial findings. 4. CT abdomen and pelvis: No acute findings abdomen and pelvis. 5. CT angio of the chest: No PE or aortic dissection. Diffuse tree-in-bud infiltrates throughout both lungs compatible with diffuse bilateral pneumonia. Multiple new thoracica and upper lumbar compression fractures since the chest CT of December 2016. 6. Last chest x-ray on April 16: Patchy bilateral infiltrates. No pneumothorax. Bilateral old rib fractures. 7. Blood culture negative. 8. Bronchoalveolar washing culture negative. 9. Urine culture showed E. coli. HISTORY OF PRESENT HOSPITAL STAY Please refer to H and P done by me for initial presentation on this female. ACTIVE PROBLEMS AND DIAGNOSES Acute hypoxemic respiratory failure: The patient was intubated and admitted to ICU. The patient was treated with mechanical ventilation along with the bronchodilators, IV steroids and IV antibiotics. The patient was followed by Intensive Care/Pulmonology, Dr. Stanley, status post bronchoscopy with a bronchoalveolar washing. Culture negative. Blood culture negative. Status post completion of IV cefepime. Stable to Unit #: [id number] #: [id number] Patient: KR DONOHUE be discharged from a Pulmonary standpoint. Acute exacerbation of COPD: Continue bronchodilators. Continue the tapering dose of prednisone. Toxic metabolic encephalopathy, which had resolved: Status post negative CT of the head. DVT: Continue Coumadin. Monitor INR per Home Health. History of chronic pain with L-spine compression fractures: Status post Orthopaedic Surgery evaluation which recommended the brace. Continue home pain meds. History of anxiety: Continue home medications. UTI: Culture as above. Status post completion of cefepime, afebrile. No signs of active infection. Anemia of chronic disease: Stable. DISPOSITION Going home with home health. Monitor daily INR. Results to primary care physician. Outpatient follow with the primary care and Pulmonary as an outpatient. DISCHARGE MEDICATIONS 1. Tapering dose of prednisone. 2. Tylenol p.r.n. 3. Coumadin 4 mg daily. 4. Gabapentin 600 mg t.i.d. 5. Keppra 1,000 mg b.i.d. 6. Amitriptyline 25 mg daily. 7. Zoloft 25 mg at bedtime. 8. Megace 40 mg b.i.d. 9. Xanax 0.5 mg t.i.d. 10. Colace 100 mg daily. 11. Guaifenesin 600 mg b.i.d. 12. Home dose of methadone 10 mg p.o. t.i.d. 13. Ultram, also home dose, 50 mg t.i.d. Dictated by... Andrey Marcos/thais TD: 04/19/2017 18:04 JOB #: [id number] Unit #: [id number] #: [id number] Patient: RK DONOHUE DISCHARGE SUMMARY Page 1 of 1 X Justino Pelletier MD DISCHARGE SUMMARY
[~2017-04-11 18:11] MED LIST: ALPRAZOLAM PO; ALPRAZOLAM0.5 MG PO; AMITRYPTYLINE PO; COLACE PO; COUMADIN PO; COUMADIN4 MG PO; FOSAMAX PO; FOSAMAX70 MG PO; GABAPENTIN600 MG PO; HYDROCODONE-APA1 T30; HYDROCODONE-APA1 T55 PO; LUPUS MED; MEGACE PO; MEGESTROL ACETA40 MG PO; METHADONE HCL10 MG PO; METHADONE PO; METHOTREXATE; METHOTREXATE2.5 MG INJ; NEURONTIN PO; NORCO 5/325 TAB1 TAB PO; PLAQUENIL200 MG PO; PREDNISONE; PREDNISONE PO; WARFARIN SODIUM6 MG PO
[2017-04-11 18:26] LABS: ARTERIAL BLD GAS O2 SATURATION 98.2 % (90.0-100.0); ARTERIAL BLOOD GAS CARBOXY HB 0.7 %sat (0.0-9.0); ARTERIAL BLOOD GAS HCO3 26.2 mmol/L; ARTERIAL BLOOD GAS MET HB 0.5 %sat (0.0-2.0); ARTERIAL BLOOD GAS PCO2 46.3 mmHg (35.0-45.0)
[2017-04-11 18:27] LABS: POC - CKMB 1.5 ng/mL (0.0-7.9); POC - TROPONIN <0.05 ng/mL (<=0.05)
[2017-04-11 18:27] LABS: ARTERIAL BLOOD GAS ALLEN TEST NORMAL; ARTERIAL BLOOD GAS ART SITE LEFT RADIAL; ARTERIAL DRAW? YES
[2017-04-11 18:31] LABS: URINE SOURCE CLEAN CATCH
[2017-04-11 18:36] LABS: URINE APPEARANCE CLEAR; URINE BILIRUBIN NEG (NEG); URINE BLOOD NEG (NEG); URINE COLOR YELLOW; URINE GLUCOSE 500 MG/DL (NEG); URINE KETONE NEG (NEG); URINE LEUKOCYTE ESTERASE NEG (NEG); URINE NITRATE POS (NEG); URINE PH 5.5 (5-8); URINE PROTEIN 2+ (NEG); URINE SPECIFIC GRAVITY 1.039 (1.003-1.035)
[2017-04-11 18:37] LABS: BASOPHIL% 0.2 % (0-2.5); HEMATOCRIT 43.2 % (35.0-45.0); HEMOGLOBIN 13.9 gm/dL (12.0-16.0); LYMPHOCYTE# 1.5 X10e3 (1.0-3.5); LYMPHOCYTE% 14.8 % (17.0-45.0); MEAN CELL VOLUME 88.2 FL (83-96); MEAN CORPUSCULAR HEMOGLOBIN 28.3 PG (28-34); MEAN CORPUSCULAR HGB CONC 32.1 g/dL (30-36); MEAN PLATELET VOLUME 9.1 FL (6.5-11.5); MONOCYTE# 0.3 X10e3 (0-1.0); MONOCYTE% 2.6 % (3.0-12.0); NEUTROPHIL# 8.1 X10e3 (1.5-7.1); NEUTROPHIL% 82.4 % (40-75); PLATELET COUNT 195 X10e3 (140-420); RED CELL DISTRIBUTION WIDTH 17.6 % (11.0-15.5); WHITE BLOOD COUNT 9.8 X10e3 (4.0-10.5)
[2017-04-11 18:38] LABS: DIFF IND NO
[2017-04-11 18:38] LABS: CULTURE INDICATED? YES; URBCS1 AUWI 0-2 /[HPF] (0-2); URINE BACTERIA AUWI 4+ (NEGATIVE); URINE SQUAMOUS EPITHELIAL CELL MOD /[HPF]
[2017-04-11 18:53] LABS: AMPHETAMINE NEG (NEG); BARBITURATES NEG (NEG); BENZODIAZEPINES POS (NEG); COCAINE NEG (NEG); MARIJUANA NEG (NEG); OPIATES NEG (NEG); TRICYCLIC ANTIDEPRESSANTS POS (NEG); U METHADONE POS (NEG)
[2017-04-11 19:02] LABS: ALBUMIN SERUM 4.2 g/dL (3.5-5.0); ALKALINE PHOSPHATASE 123 U/L (32-92); ALT (SGPT) 15 U/L (10-40); AST (SGOT) 15 U/L (10-42); BILIRUBIN,TOTAL 0.4 mg/dL (0.2-2.0); BLOOD UREA NITROGEN 12 mg/dL (9-23); CALCIUM SERUM 9.7 mg/dL (8.4-10.2); CARBON DIOXIDE 29 mmol/L (22-31); CHLORIDE 103 mmol/L (100-111); CPK (CREATINE PHOSPHOKINASE) 30 IU/L (26-140); CREATININE SERUM 0.6 mg/dL (0.6-1.4); GLOM FILT RATE Estimated 108.5 mL/min (>60); GLUCOSE FASTING 92 mg/dL (70-110); MAGNESIUM 1.8 mg/dL (1.6-3.0); POTASSIUM 3.5 mmol/L (3.5-5.1); PROTEIN TOTAL SERUM 7.4 g/dL (6.0-8.3); SODIUM 141 mmol/L (135-145)
[2017-04-11 19:06] LABS: ALCOHOL BLOOD <5 mg/dL (0); BILIRUBIN, DIRECT <0.1 mg/dL (0.0-0.2); BILIRUBIN,INDIRECT 0.3 mg/dL (0.0-0.9)
[2017-04-11 19:19] LABS: U HYALINE CASTS AUWI 0-2 /[LPF]
[2017-04-11 20:03] LABS: ARTERIAL BLD GAS O2 SATURATION 99.3 % (90.0-100.0); ARTERIAL BLOOD GAS CARBOXY HB 0.7 %sat (0.0-9.0); ARTERIAL BLOOD GAS HCO3 26.9 mmol/L; ARTERIAL BLOOD GAS MET HB 1.6 %sat (0.0-2.0); ARTERIAL BLOOD GAS PCO2 81.1 mmHg (35.0-45.0)
[2017-04-11 20:04] LABS: ARTERIAL BLOOD GAS ART SITE RIGHT BRACHIAL; ARTERIAL BLOOD GAS DELIVERY VENT; ARTERIAL BLOOD GAS VENT MODE AC; ARTERIAL DRAW? YES
[2017-04-11 20:18] LABS: INR 5.5; PARTIAL THROMBOPLASTIN TIME 74.2 SECONDS (23.5-31.3); PROTHROMBIN TIME (PATIENT) 60.9 SECONDS (9.6-11.5)
[2017-04-11 21:44] LABS: ARTERIAL BLOOD GAS PCO2 45.8 mmHg (35.0-45.0); ARTERIAL BLOOD GAS PO2 77.3 mmHg (80.0-100); ARTERIAL BLOOD GAS pH 7.328 (7.350-7.450)
[2017-04-11 21:45] LABS: ARTERIAL BLD GAS O2 SATURATION 94.5 % (90.0-100.0); ARTERIAL BLOOD GAS ALLEN TEST NORMAL; ARTERIAL BLOOD GAS ART SITE RIGHT RADIAL; ARTERIAL BLOOD GAS CARBOXY HB 0.7 %sat (0.0-9.0); ARTERIAL BLOOD GAS DELIVERY VENT; ARTERIAL BLOOD GAS MET HB 0.9 %sat (0.0-2.0); ARTERIAL BLOOD GAS VENT MODE AC; ARTERIAL DRAW? YES
[2017-04-12] MEDS ORDERED: MEGESTROL ACETA40 MG PO (00:20)
[2017-04-12] MEDS ORDERED: AMITRIPTYLINE H25 MG PO (00:20)
[2017-04-12] MEDS ORDERED: COUMADIN4 MG PO (00:21)
[2017-04-12] MEDS ORDERED: NEURONTIN600 MG PO (00:21)
[2017-04-12] MEDS ORDERED: ALPRAZOLAM0.5 MG PO (00:22)
[2017-04-12] MEDS ORDERED: METHADONE HCL10 MG PO (00:22)
[2017-04-12] MEDS ORDERED: ULTRAM PO (00:23)
[2017-04-12] MEDS ORDERED: KEPPRA500 MG PO (00:24)
[2017-04-12 03:45] LABS: ARTERIAL BLD GAS O2 SATURATION 96.8 % (90.0-100.0); ARTERIAL BLOOD GAS CARBOXY HB 0.5 %sat (0.0-9.0); ARTERIAL BLOOD GAS HCO3 26.5 mmol/L; ARTERIAL BLOOD GAS MET HB 1.1 %sat (0.0-2.0); ARTERIAL BLOOD GAS PCO2 46.1 mmHg (35.0-45.0); ARTERIAL BLOOD GAS pH 7.368 (7.350-7.450)
[2017-04-12 03:46] LABS: ARTERIAL BLOOD GAS ALLEN TEST NORMAL; ARTERIAL BLOOD GAS ART SITE LEFT RADIAL; ARTERIAL BLOOD GAS DELIVERY VENT; ARTERIAL BLOOD GAS VENT MODE AC; ARTERIAL DRAW? YES
[2017-04-12 11:24] LABS: BASOPHIL% 0.2 % (0-2.5); HEMATOCRIT 31.4 % (35.0-45.0); LYMPHOCYTE# 0.4 X10e3 (1.0-3.5); LYMPHOCYTE% 6.2 % (17.0-45.0); MEAN CELL VOLUME 87.5 FL (83-96); MEAN CORPUSCULAR HEMOGLOBIN 28.3 PG (28-34); MEAN CORPUSCULAR HGB CONC 32.3 g/dL (30-36); MONOCYTE# 0.1 X10e3 (0-1.0); MONOCYTE% 2.2 % (3.0-12.0); NEUTROPHIL# 5.2 X10e3 (1.5-7.1); NEUTROPHIL% 91.4 % (40-75); PLATELET COUNT 148 X10e3 (140-420); RED BLOOD COUNT 3.59 X10e (3.90-5.30); RED CELL DISTRIBUTION WIDTH 17.6 % (11.0-15.5); WHITE BLOOD COUNT 5.7 X10e3 (4.0-10.5)
[2017-04-12 11:25] LABS: DIFF IND NO; HEMOGLOBIN 10.2 gm/dL (12.0-16.0)
[2017-04-12 12:05] LABS: CREATININE SERUM 0.4 mg/dL (0.6-1.4); GLOM FILT RATE Estimated 124.1 mL/min (>60); POTASSIUM 3.1 mmol/L (3.5-5.1)
[2017-04-13 04:07] LABS: ARTERIAL BLD GAS O2 SATURATION 98.4 % (90.0-100.0); ARTERIAL BLOOD GAS CARBOXY HB 0.1 %sat (0.0-9.0); ARTERIAL BLOOD GAS HCO3 25.4 mmol/L; ARTERIAL BLOOD GAS MET HB 0.8 %sat (0.0-2.0); ARTERIAL BLOOD GAS PCO2 47.6 mmHg (35.0-45.0); ARTERIAL BLOOD GAS pH 7.335 (7.350-7.450)
[2017-04-13 05:13] LABS: ARTERIAL DRAW? YES
[2017-04-13 05:14] LABS: ARTERIAL BLOOD GAS ALLEN TEST NORMAL; ARTERIAL BLOOD GAS ART SITE RIGHT RADIAL; ARTERIAL BLOOD GAS DELIVERY VENT; ARTERIAL BLOOD GAS VENT MODE AC
[2017-04-13 05:51] LABS: BASOPHIL% 0.1 % (0-2.5); HEMATOCRIT 30.9 % (35.0-45.0); LYMPHOCYTE# 0.5 X10e3 (1.0-3.5); LYMPHOCYTE% 12.9 % (17.0-45.0); MEAN CELL VOLUME 87.6 FL (83-96); MEAN CORPUSCULAR HEMOGLOBIN 28.2 PG (28-34); MEAN CORPUSCULAR HGB CONC 32.2 g/dL (30-36); MEAN PLATELET VOLUME 9.1 FL (6.5-11.5); MONOCYTE# 0.1 X10e3 (0-1.0); MONOCYTE% 1.9 % (3.0-12.0); NEUTROPHIL# 3.6 X10e3 (1.5-7.1); NEUTROPHIL% 85.1 % (40-75); PLATELET COUNT 158 X10e3 (140-420); RED BLOOD COUNT 3.53 X10e (3.90-5.30); RED CELL DISTRIBUTION WIDTH 17.9 % (11.0-15.5); WHITE BLOOD COUNT 4.2 X10e3 (4.0-10.5)
[2017-04-13 05:52] LABS: DIFF IND NO
[2017-04-13 06:07] LABS: INR 1.1
[2017-04-13 06:08] LABS: PROTHROMBIN TIME (PATIENT) 11.4 SECONDS (9.6-11.5)
[2017-04-13 06:37] LABS: ALBUMIN SERUM 3.1 g/dL (3.5-5.0); BILIRUBIN,TOTAL 0.5 mg/dL (0.2-2.0); CALCIUM SERUM 8.2 mg/dL (8.4-10.2); CREATININE SERUM 0.4 mg/dL (0.6-1.4); GLOM FILT RATE Estimated 124.1 mL/min (>60); MAGNESIUM 2.1 mg/dL (1.6-3.0); POTASSIUM 3.6 mmol/L (3.5-5.1); PROTEIN TOTAL SERUM 5.8 g/dL (6.0-8.3)
[2017-04-13 19:12] LABS: BODY FLUID APPEARANCE CLOUDY; BODY FLUID SOURCE BRONCHIAL LAVAGE
[2017-04-14 04:25] LABS: ARTERIAL BLD GAS O2 SATURATION 97.1 % (90.0-100.0); ARTERIAL BLOOD GAS ALLEN TEST NORMAL; ARTERIAL BLOOD GAS ART SITE RIGHT RADIAL; ARTERIAL BLOOD GAS CARBOXY HB 0.1 %sat (0.0-9.0); ARTERIAL BLOOD GAS DELIVERY VENT; ARTERIAL BLOOD GAS HCO3 25.2 mmol/L; ARTERIAL BLOOD GAS MET HB 0.9 %sat (0.0-2.0); ARTERIAL BLOOD GAS PCO2 43.3 mmHg (35.0-45.0); ARTERIAL BLOOD GAS VENT MODE A/C; ARTERIAL BLOOD GAS pH 7.374 (7.350-7.450); ARTERIAL DRAW? YES
[2017-04-14 05:57] LABS: BASOPHIL% 0.1 % (0-2.5); HEMATOCRIT 28.1 % (35.0-45.0); LYMPHOCYTE# 0.3 X10e3 (1.0-3.5); LYMPHOCYTE% 10.8 % (17.0-45.0); MEAN CORPUSCULAR HEMOGLOBIN 28.2 PG (28-34); MEAN CORPUSCULAR HGB CONC 32.1 g/dL (30-36); MEAN PLATELET VOLUME 9.3 FL (6.5-11.5); MONOCYTE# 0.1 X10e3 (0-1.0); MONOCYTE% 3.4 % (3.0-12.0); NEUTROPHIL# 2.7 X10e3 (1.5-7.1); NEUTROPHIL% 85.7 % (40-75); PLATELET COUNT 132 X10e3 (140-420); RED BLOOD COUNT 3.19 X10e (3.90-5.30); RED CELL DISTRIBUTION WIDTH 17.9 % (11.0-15.5); WHITE BLOOD COUNT 3.2 X10e3 (4.0-10.5)
[2017-04-14 06:21] LABS: DIFF IND NO
[2017-04-14 06:24] LABS: ALBUMIN SERUM 2.6 g/dL (3.5-5.0); BILIRUBIN,TOTAL 0.5 mg/dL (0.2-2.0); BUN/CREATININE RATIO 36.66; CALCIUM SERUM 8.2 mg/dL (8.4-10.2); CREATININE SERUM 0.3 mg/dL (0.6-1.4); GLOM FILT RATE Estimated 136.4 mL/min (>60); MAGNESIUM 2.1 mg/dL (1.6-3.0); POTASSIUM 3.5 mmol/L (3.5-5.1); PROTEIN TOTAL SERUM 4.8 g/dL (6.0-8.3)
[2017-04-14 12:56] LABS: ARTERIAL BLD GAS O2 SATURATION 96.2 % (90.0-100.0); ARTERIAL BLOOD GAS ALLEN TEST NORMAL; ARTERIAL BLOOD GAS ART SITE RIGHT RADIAL; ARTERIAL BLOOD GAS DELIVERY VENT; ARTERIAL BLOOD GAS HCO3 26.9 mmol/L; ARTERIAL BLOOD GAS MET HB 1.3 %sat (0.0-2.0); ARTERIAL BLOOD GAS VENT MODE CPAP; ARTERIAL BLOOD GAS pH 7.414 (7.350-7.450); ARTERIAL DRAW? YES
[2017-04-15 05:08] LABS: HEMATOCRIT 28.6 % (35.0-45.0); HEMOGLOBIN 9.4 gm/dL (12.0-16.0); LYMPHOCYTE# 0.7 X10e3 (1.0-3.5); LYMPHOCYTE% 12.3 % (17.0-45.0); MEAN CELL VOLUME 85.7 FL (83-96); MEAN CORPUSCULAR HEMOGLOBIN 28.1 PG (28-34); MEAN CORPUSCULAR HGB CONC 32.8 g/dL (30-36); MEAN PLATELET VOLUME 8.9 FL (6.5-11.5); MONOCYTE# 0.4 X10e3 (0-1.0); NEUTROPHIL# 4.3 X10e3 (1.5-7.1); NEUTROPHIL% 80.7 % (40-75); PLATELET COUNT 152 X10e3 (140-420); RED BLOOD COUNT 3.34 X10e (3.90-5.30); RED CELL DISTRIBUTION WIDTH 16.8 % (11.0-15.5)
[2017-04-15 05:09] LABS: DIFF IND NO; WHITE BLOOD COUNT 5.3 X10e3 (4.0-10.5)
[2017-04-15 06:03] LABS: BILIRUBIN,TOTAL 1.2 mg/dL (0.2-2.0); BUN/CREATININE RATIO 32.5; CALCIUM SERUM 8.7 mg/dL (8.4-10.2); CREATININE SERUM 0.4 mg/dL (0.6-1.4); GLOM FILT RATE Estimated 124.1 mL/min (>60); POTASSIUM 3.5 mmol/L (3.5-5.1); PROTEIN TOTAL SERUM 5.2 g/dL (6.0-8.3)
[2017-04-16 05:29] LABS: BASOPHIL% 0.1 % (0-2.5); HEMATOCRIT 30.1 % (35.0-45.0); HEMOGLOBIN 9.9 gm/dL (12.0-16.0); LYMPHOCYTE# 1.1 X10e3 (1.0-3.5); LYMPHOCYTE% 24.8 % (17.0-45.0); MEAN CELL VOLUME 85.8 FL (83-96); MEAN CORPUSCULAR HEMOGLOBIN 28.3 PG (28-34); MEAN PLATELET VOLUME 8.9 FL (6.5-11.5); MONOCYTE# 0.4 X10e3 (0-1.0); MONOCYTE% 8.5 % (3.0-12.0); NEUTROPHIL# 2.9 X10e3 (1.5-7.1); NEUTROPHIL% 66.6 % (40-75); PLATELET COUNT 147 X10e3 (140-420); RED CELL DISTRIBUTION WIDTH 16.8 % (11.0-15.5); WHITE BLOOD COUNT 4.3 X10e3 (4.0-10.5)
[2017-04-16 05:32] LABS: DIFF IND NO
[2017-04-16 05:47] LABS: INR 1.1; PROTHROMBIN TIME (PATIENT) 11.1 SECONDS (9.6-11.5)
[2017-04-16 06:13] LABS: BUN/CREATININE RATIO 36.66; CALCIUM SERUM 8.6 mg/dL (8.4-10.2); CREATININE SERUM 0.3 mg/dL (0.6-1.4); GLOM FILT RATE Estimated 136.4 mL/min (>60); POTASSIUM 3.4 mmol/L (3.5-5.1)
[2017-04-17 05:50] LABS: BASOPHIL% 0.1 % (0-2.5); EOSINOPHIL% 0.1 % (0.0-7.0); HEMATOCRIT 32.7 % (35.0-45.0); HEMOGLOBIN 10.6 gm/dL (12.0-16.0); LYMPHOCYTE# 1.4 X10e3 (1.0-3.5); LYMPHOCYTE% 20.6 % (17.0-45.0); MEAN CELL VOLUME 85.3 FL (83-96); MEAN CORPUSCULAR HEMOGLOBIN 27.8 PG (28-34); MEAN CORPUSCULAR HGB CONC 32.6 g/dL (30-36); MONOCYTE# 0.5 X10e3 (0-1.0); MONOCYTE% 7.4 % (3.0-12.0); NEUTROPHIL% 71.8 % (40-75); PLATELET COUNT 184 X10e3 (140-420); RED BLOOD COUNT 3.83 X10e (3.90-5.30); RED CELL DISTRIBUTION WIDTH 16.5 % (11.0-15.5)
[2017-04-17 05:51] LABS: DIFF IND NO
[2017-04-17 07:04] LABS: BUN/CREATININE RATIO 27.5; CALCIUM SERUM 8.6 mg/dL (8.4-10.2); CREATININE SERUM 0.4 mg/dL (0.6-1.4); GLOM FILT RATE Estimated 124.1 mL/min (>60); POTASSIUM 3.3 mmol/L (3.5-5.1)
[2017-04-18 05:49] LABS: HEMATOCRIT 32.9 % (35.0-45.0); HEMOGLOBIN 10.9 gm/dL (12.0-16.0); MEAN CELL VOLUME 85.2 FL (83-96); MEAN CORPUSCULAR HEMOGLOBIN 28.2 PG (28-34); MEAN CORPUSCULAR HGB CONC 33.1 g/dL (30-36); RED BLOOD COUNT 3.86 X10e (3.90-5.30); RED CELL DISTRIBUTION WIDTH 16.6 % (11.0-15.5); WHITE BLOOD COUNT 8.4 X10e3 (4.0-10.5)
[2017-04-18 06:13] LABS: INR 1.2
[2017-04-18 06:55] LABS: BUN/CREATININE RATIO 33.33; CREATININE SERUM 0.3 mg/dL (0.6-1.4); GLOM FILT RATE Estimated 136.4 mL/min (>60); POTASSIUM 4.5 mmol/L (3.5-5.1)
[2017-04-19] MEDS ORDERED: PREDNISONE PO (00:19)
[2017-04-19 08:36] LABS: INR 1.5; PROTHROMBIN TIME (PATIENT) 15.6 SECONDS (9.6-11.5)
[2017-04-19 08:51] LABS: BUN/CREATININE RATIO 23.33; CALCIUM SERUM 8.2 mg/dL (8.4-10.2); CREATININE SERUM 0.6 mg/dL (0.6-1.4); GLOM FILT RATE Estimated 108.5 mL/min (>60); POTASSIUM 3.1 mmol/L (3.5-5.1)
[2017-04-19] MEDS ORDERED: SYMBICORT INH (16:34)
[2017-04-19] MEDS ORDERED: ALBUTEROL17 GM INH (16:35)
[2017-04-19] MEDS ORDERED: DOCUSATE SODIU100 MG PO (16:36)
[2017-04-19] MEDS ORDERED: MUCUS RELIEF600 M1 PO (16:39)
[2017-04-19] MEDS ORDERED: ZOLOFT PO (16:39)
[2017-04-19] MEDS ORDERED: ACETAMINOPHEN PO (16:41)
== END 2017-04-19 17:41 | disposition home health service (06) | DRG 166 ==
LOC: CED 18:11 → EDBD 04-12 00:05 → CEDOF 04-12 00:05 → CICCU3 04-12 00:05 → CEDOF 04-12 00:24 → CED 04-12 00:24 → CICCU3 04-12 09:10 → CEDOF 04-12 09:10 → C3A PCU 04-17 08:03
PROVIDERS: Emergency Medicine; Hospitalist; Internal Medicine; Internal Medicine Pulmonary Disease; Physician Assistant Medical; Psychiatry & Neurology Psychiatry
PROC: 0BH17EZ Insertion of Endotracheal Airway into Trachea, Via Natural or Artificial Opening (ICD-10-PCS; principal; 2017-04-12)
PROC: 5A1945Z Respiratory Ventilation, 24-96 Consecutive Hours (ICD-10-PCS; 2017-04-12)
PROC: 05HM33Z Insertion of Infusion Device into Right Internal Jugular Vein, Percutaneous Approach (ICD-10-PCS; 2017-04-12)
PROC: B543ZZA Ultrasonography of Right Jugular Veins, Guidance (ICD-10-PCS; 2017-04-12)
PROC: 30233L1 Transfusion of Nonautologous Fresh Plasma into Peripheral Vein, Percutaneous Approach (ICD-10-PCS; 2017-04-12)
PROC: 30233K1 Transfusion of Nonautologous Frozen Plasma into Peripheral Vein, Percutaneous Approach (ICD-10-PCS; 2017-04-12)
PROC: B32TYZZ Computerized Tomography (CT Scan) of Left Pulmonary Artery using Other Contrast (ICD-10-PCS; 2017-04-12)
PROC: B32SYZZ Computerized Tomography (CT Scan) of Right Pulmonary Artery using Other Contrast (ICD-10-PCS; 2017-04-12)
PROC: 0B9M8ZZ Drainage of Bilateral Lungs, Via Natural or Artificial Opening Endoscopic (ICD-10-PCS; 2017-04-13)
PROC: 0B9D8ZX Drainage of Right Middle Lung Lobe, Via Natural or Artificial Opening Endoscopic, Diagnostic (ICD-10-PCS; 2017-04-13 14:11)
DX: J96.01 Acute respiratory failure with hypoxia (principal); J18.9 Pneumonia, unspecified organism; R57.9 Shock, unspecified; G92 Toxic encephalopathy; F33.2 Major depressive disorder, recurrent severe without psychotic features; J44.1 Chronic obstructive pulmonary disease with (acute) exacerbation; S32.019A Unspecified fracture of first lumbar vertebra, initial encounter for closed fracture; S32.039A Unspecified fracture of third lumbar vertebra, initial encounter for closed fracture; N39.0 Urinary tract infection, site not specified; G40.909 Epilepsy, unspecified, not intractable, without status epilepticus; Z86.718 Personal history of other venous thrombosis and embolism; Z79.01 Long term (current) use of anticoagulants; F41.9 Anxiety disorder, unspecified; G89.29 Other chronic pain; D64.89 Other specified anemias; Z88.1 Allergy status to other antibiotic agents; Z88.0 Allergy status to penicillin; Z88.2 Allergy status to sulfonamides; Z96.652 Presence of left artificial knee joint; Z96.643 Presence of artificial hip joint, bilateral; B96.20 Unspecified Escherichia coli [E. coli] as the cause of diseases classified elsewhere
CPT/HCPCS: 31500; 36556; 36600; 70450; 71010; 71275; 74000; 74177; 80048; 80053; 80076; 80200; 80202; 80307; 81003; 82308; 82550; 82553; 82803; 83605; 83735; 83880; 84132; 84311; 84484; 84703; 85025; 85027; 85610; 85730; 86850; 86900; 86901; 87040; 87070; 87086; 87088; 87102; 87103; 87106; 87116; 87186; 87205; 87206; 87252; 87254; 87278; 87449; 87633; 87899; 88108; 88305; 88312; 89051; 92526; 92610; 93005; 94002; 94003; 94640; 94660; 94760; 94761; 96365; 96366; 96375; 97116; 97163; 97167; 97530; 97535; 99291; 99292; C9113; G0480; G8978-GP; G8979-GP; G8987-GO; G8988-GO; G8996-GN; G8997-GN; G8998-GN; J0171; J0330; J0456; J0692; J1953; J2250; J2270; J2405; J2920; J2930; J3260; J3370; J3430; J3475; P9059; Q9967